=== PATIENT | female | born 1990 | race African-American/Black ===

== ENCOUNTER 2016-07-20 15:40 | Emergency (ER) | payer BC, MEDICAID ==
--- NOTE | 2016-07-20 16:20 | ER Document Report ---
ED GI/ - General Chief Complaint: Vaginal bleeding, low abdominal cramps Stated Complaint: VAGINAL BLEEDING,CRAMPING Time Seen by Provider: 07/20/16 16:18 Mode of Arrival: Ambulatory Information source: Patient Notes: Patient presents complaining of heavy vaginal bleeding for the past 2 days. Patient states that she has been occasionally passing clots. Patient complains of lower pelvic cramping. Patient has had irregular menses. TRAVEL OUTSIDE OF THE [place] IN LAST 30 DAYS: No - HPI Patient complains to provider of: Pelvic pain, Vaginal bleeding. No: Vaginal discharge Onset: Other - 2 days Timing/Duration: Persistent Quality of pain: Cramping Pain Level: 5 Location: Pelvis Vaginal bleeding (Compared to normal period): Similar, Passing clots Sexual history: Active Associated symptoms: denies: Dysuria, Fever, Nausea, Urinary hesitancy, Urinary frequency, Urinary retention, Urinary urgency, Vaginal discharge, Vomiting Exacerbated by: Denies Relieved by: Denies Similar symptoms previously: Yes Recently seen / treated by doctor: No - Related Data Allergies/Adverse Reactions: Sulfa (Sulfonamide Antibiotics) Adverse Reaction (Verified 11/30/14 22:43) Past Medical History - General Information source: Patient Last Menstrual Period: 07/20/2016 - Social History Smoking Status: Never Smoker Frequency of alcohol use: None Drug Abuse: None 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 denies: Fever, Recent illness EENT: No symptoms reported Cardiovascular: No symptoms reported. denies: Chest pain Respiratory: No symptoms reported. denies: Cough Gastrointestinal: Abdominal pain. denies: Nausea, Vomiting Genitourinary: No symptoms reported. denies: Dysuria Female Genitourinary: Vaginal bleeding. denies: Vaginal discharge Musculoskeletal: No symptoms reported. denies: Back pain Skin: No symptoms reported Hematologic/Lymphatic: No symptoms reported Neurological/Psychological: No symptoms reported Physical Exam - Vital signs Vitals: Temp Pulse Resp BP Pulse Ox 98.4 F 70 20 123/75 99 07/20/16 15:49 07/20/16 15:49 07/20/16 15:49 07/20/16 15:49 07/20/16 15:49 - General General appearance: Appears well, Alert In distress: None - HEENT Head: Normocephalic, Atraumatic Eyes: Normal Nasal: Normal Mouth/Lips: Normal Mucous membranes: Normal Neck: Normal, Supple. No: Lymphadenopathy - Respiratory Respiratory status: No respiratory distress Chest status: Nontender Breath sounds: Normal. No: Rales, Rhonchi, Stridor, Wheezing Chest palpation: Normal - Cardiovascular Rhythm: Regular Heart sounds: S1 appreciated, S2 appreciated Murmur: No - Abdominal Inspection: Normal Distension: No distension Bowel sounds: Normal Tenderness: Tender - left lower pelvic Organomegaly: No organomegaly - Genitourinary External exam: Normal Speculum exam: Cervix closed Vaginal bleeding: Mild Bimanuel exam: Adnexal tenderness - left. No: Cervical motion tender Notes: T Mejias as standby - Back Back: Normal, Nontender. No: CVA tenderness - Extremities General upper extremity: Normal inspection, Normal ROM General lower extremity: Normal inspection, Normal ROM - Neurological Neuro grossly intact: Yes Cognition: Normal Otoniel Coma Scale Eye Opening: Spontaneous Otoniel Coma Scale Verbal: Oriented [place] Coma Scale Motor: Obeys Commands Otoniel Coma Scale Total: 15 - Psychological Associated symptoms: Normal affect, Normal mood - Skin Skin Temperature: Warm Skin Moisture: Dry Skin Color: Normal Course - Vital Signs Vital signs: Temp Pulse Resp BP Pulse Ox 98.4 F 70 20 123/75 99 07/20/16 15:49 07/20/16 15:49 07/20/16 15:49 07/20/16 15:49 07/20/16 15:49 - Laboratory Result Diagrams: 07/20/16 17:00 07/20/16 17:00 Laboratory results interpreted by me: 07/20/16 07/20/16 17:00 17:00 RDW 14.3 H Urine Blood SMALL H Discharge - Discharge Clinical Impression: Dysmenorrhea, Ovarian cyst Condition: Stable Disposition: HOME, SELF-CARE Instructions: Anti-Inflammatory Medication ([facility]), Dysmenorrhea ([facility]), Ovarian Cyst ([facility]) Additional Instructions: Return immediately for any new or worsening symptoms Followup with your primary care provider, call tomorrow to make a followup appointment Follow up with a acute care physician for further evaluation of irregular vaginal bleeding Prescriptions: Naproxen [Naprosyn 250 Nmg Tablet] 1 tab PO BID PRN #14 tablet PRN Reason: Forms: Return to Work Referrals: [facility] [Provider Group] - Follow up in 3-5 days
[2016-07-20 17:25] LABS: ABSOLUTE EOSINOPHILS # (AUTO) 0.1 10^3/uL (0.0-0.6); ABSOLUTE LYMPHOCYTES (AUTO) 3.2 10^3/uL (0.5-4.7); ABSOLUTE MONOCYTES (AUTO) 0.8 10^3/uL (0.1-1.4); ABSOLUTE NEUT (AUTO) 5.1 10^3/uL (1.7-8.2); BASOPHILS % (AUTO) 0.4 % (0-2); EOSINOPHILS % (AUTO) 1.6 % (0-6); HEMATOCRIT 40.3 % (36.0-47.0); HEMOGLOBIN 13.5 g/dL (12.0-15.5); HGB HCT DIFFERENCE 0.2; LYMPHOCYTES % (AUTO) 34.8 % (13-45); MEAN CORPUSCULAR HEMOGLOBIN 28.4 pg (27.0-33.4); MEAN CORPUSCULAR HGB CONC 33.5 g/dL (32.0-36.0); MEAN CORPUSCULAR VOLUME 85 fl (80-97); MONOCYTES % (AUTO) 8.4 % (3-13); RED BLOOD COUNT 4.75 10^6/uL (3.72-5.28); RED CELL DISTRIBUTION WIDTH 14.3 % (11.5-14.0); SEGMENTED NEUTROPHILS % (AUTO) 54.8 % (42-78); WHITE BLOOD COUNT 9.2 10^3/uL (4.0-10.5)
[2016-07-20 17:39] LABS: APPEARANCE,URINE CLEAR; BILIRUBIN,URINE NEGATIVE (NEGATIVE); GLUCOSE, URINE NEGATIVE (NEGATIVE); KETONES,URINE NEGATIVE (NEGATIVE); LEUKOCYTE ESTERASE,URINE NEGATIVE (NEGATIVE); NITRITE,URINE NEGATIVE (NEGATIVE); PROTEIN,URINE NEGATIVE (NEGATIVE); URINE SPECIFIC GRAVITY 1.002; UROBILINOGEN,URINE NEGATIVE mg/dL (<2.0)
[2016-07-20 17:43] LABS: ALANINE AMINOTRANSFERASE 32 U/L (9-52); ALBUMIN 4.2 g/dL (3.5-5.0); ALKALINE PHOSPHATASE 40 U/L (38-126); ANION GAP 11 (5-19); ASPARTATE AMINO TRANSFERASE 28 U/L (14-36); BILIRUBIN,DIRECT 0.2 mg/dL (0.0-0.4); BILIRUBIN,TOTAL 0.4 mg/dL (0.2-1.3); BLOOD UREA NITROGEN 14 mg/dL (7-20); CALCIUM 9.8 mg/dL (8.4-10.2); CARBON DIOXIDE 28 mmol/L (22-30); CHLORIDE 101 mmol/L (98-107); CREATININE RESULT 0.81 mg/dL (0.52-1.25); GLUCOSE 85 mg/dL (75-110); SODIUM 139.8 mmol/L (137-145); TOTAL PROTEIN 7.8 g/dL (6.3-8.2)
--- NOTE | 2016-07-20 18:53 | RADIOLOGY REPORT (SQ) ---
EXAM DESCRIPTION: U/S NON OB PEL TV W/DOPPLER COMPLETED DATE/TIME: 07/20/2016 6:40 pm REASON FOR STUDY: pelvic pain, irreg bleeding COMPARISON: None. TECHNIQUE: Dynamic and static grayscale images acquired of the pelvis via transvaginal approach and recorded on PACS. Additional selected color Doppler and spectral images recorded. LIMITATIONS: None. FINDINGS: UTERUS: Contour normal. No mass identified. ENDOMETRIAL STRIPE: Trace upper endometrial free fluid. No focal or generalized thickening. No marlene s identified. CERVIX: No nabothian cysts. RIGHT OVARY: No abnormal masses. RIGHT OVARY DOPPLER: Normal arterial vascular flow without evidence for torsion. LEFT OVARY: Two 1.6 cm cysts. LEFT OVARY DOPPLER: Normal arterial vascular flow without evidence for torsion. FREE FLUID: None noted. OTHER: No other significant finding. MEASUREMENTS: UTERUS: 9.1 x 6.0 x 4.2 cm ENDOMETRIAL STRIPE: 3 mm RIGHT OVARY: 3.3 x 3.1 x 1.5 cm LEFT OVARY: 3.8 x 3.1 x 2.1 cm IMPRESSION: Trace upper endometrial free fluid. Two 1.6 cm left ovarian cysts. TECHNICAL DOCUMENTATION: JOB ID: [id number] [facility]- All Rights Reserved
[2016-07-20 19:32] LABS: CHLAM PCR NOT DETECTED (NOT DETECT)
[2016-07-20 20:35] VITALS: BP 126/67
== END 2016-07-20 20:35 | disposition home or self-care (01) ==
LOC: ER 15:40
DX: N83.209 Unspecified ovarian cyst, unspecified side (principal); N94.6 Dysmenorrhea, unspecified; R10.30 Lower abdominal pain, unspecified; R10.2 Pelvic and perineal pain; Z88.2 Allergy status to sulfonamides
CPT/HCPCS: 36415; 76830; 80053; 81001; 84702; 85025; 87210; 87491; 87591; 93976; 99284

== ENCOUNTER 2020-03-02 16:42 | Outpatient (CLI) | payer OTHER ==
[2020-03-02 17:08] LABS: APPEARANCE,URINE CLEAR; BILIRUBIN,URINE NEGATIVE (NEGATIVE); COLOR,URINE STRAW; GLUCOSE, URINE NEGATIVE (NEGATIVE); KETONES,URINE NEGATIVE (NEGATIVE); LEUKOCYTE ESTERASE,URINE NEGATIVE (NEGATIVE); NITRITE,URINE NEGATIVE (NEGATIVE); PROTEIN,URINE NEGATIVE (NEGATIVE); URINE SPECIFIC GRAVITY 1.004; UROBILINOGEN,URINE NEGATIVE mg/dL (<2.0)
[2020-03-02 17:23] LABS: URINE AMPHETAMINES SCREEN NEGATIVE; URINE BARBITURATES SCREEN NEGATIVE; URINE BENZODIAZEPINES SCREEN NEGATIVE; URINE COCAINE SCREEN NEGATIVE; URINE MARIJUANA (THC) SCREEN NEGATIVE; URINE METHADONE SCREEN NEGATIVE; URINE PHENCYCLIDINE SCREEN NEGATIVE
[2020-03-02] MEDS ORDERED: HYDROXYZINE PAMOATE 50 MG CAPSULE PO ONE (18:29)
[2020-03-02] MEDS ORDERED: HYDROXYZINE PAMOATE 50 MG CAPSULE ONE (18:36)
[2020-03-02] MEDS ORDERED: ONDANSETRON HCL 8 MG TABLET PO ONE (18:38)
[2020-03-02] MEDS ORDERED: ONDANSETRON HCL 8 MG TABLET ONE (18:38)
--- NOTE | 2020-03-02 18:50 | Non Stress Test Report ---
Non Stress Test Datetime Report Generated by CPN: 03/02/2020 18:50 DEMOGRAPHIC EGA NST: 39.0 INDICATION Indication for Study (NST) Other: rule out labor MONITORING Monitor Explained: Monitor Explained; Test Explained; Patient Verbalized Understanding Time on Monitor: 03/02/2020 17:01 Time off Monitor: 03/02/2020 17:21 NST Duration: 20 NST INTERVENTIONS NST Interventions: PO Hydration; Reposition Patient Physician Notified NST: Dr. Pelaez on unit, reviewed fht BABY A: [id number] BABY A Movement : Present Contraction Frequency : none FHR Baseline : 135 Accelerations : 15X15 Decelerations : None Variability : Moderate 6-25bpm NST Review: Meets Criteria for Reactive NST NST Review and Verified By : Wild Avila RN NST Results: Reactive NST REPORT Report Trigger: Send Report
== END 2020-03-02 18:58 | disposition home or self-care (01) ==
LOC: LC 16:42
PROVIDERS: ATTEND Obstetrics & Gynecology
DX: O47.1 False labor at or after 37 completed weeks of gestation (principal); Z3A.39 39 weeks gestation of pregnancy; Z88.1 Allergy status to other antibiotic agents
CPT/HCPCS: 80307; 81005; S0119

== ENCOUNTER 2020-03-02 21:18 | Inpatient (IN) | payer OTHER ==
[~2020-03-02 21:18] MED LIST: RINGERS SOLUTION,LACTATED 1,000 ML IV PRN
[2020-03-02] MEDS ORDERED: MISOPROSTOL 0.2 MG TABLET ONE (21:24)
[2020-03-02] MEDS ORDERED: LIDOCAINE 1% INJ-PF (10 MG/ML) 30 ML SDV ONE (21:24)
[2020-03-02] MEDS ORDERED: OXYTOCIN 10 UNIT/ML VIAL ONE (21:24)
[2020-03-02] MEDS ORDERED: OXYTOCIN/0.9 % SODIUM CHLORIDE 30 UNIT/500 ML RTUINJ ONE (21:24)
[2020-03-02] MEDS ORDERED: BENZOCAINE/MENTHOL AEROSOL SPRAY 56 ML TOP PRN (21:49)
[2020-03-02] MEDS ORDERED: DIPHENHYDRAMINE HCL 25 MG CAPSULE PO PRN (21:49)
[2020-03-02] MEDS ORDERED: ZOLPIDEM TARTRATE 5 MG TABLET PO PRN (21:49)
[2020-03-02] MEDS ORDERED: MEASLES,MUMPS&RUBELLA VACC/PF 0.5 ML VIAL SUBCUT PRN (21:49)
[2020-03-02] MEDS ORDERED: VARICELLA VACC/PF (1350 UNIT/0.5 ML) 0.5 ML VIAL SUBCUT PRN (21:49)
[2020-03-02] MEDS ORDERED: FAMOTIDINE 20 MG TABLET PO PRN (21:49)
[2020-03-02] MEDS ORDERED: OXYTOCIN/0.9 % SODIUM CHLORIDE 30 UNIT/500 ML RTUINJ IV PRN (21:49)
[2020-03-02] MEDS ORDERED: PSEUDOEPHEDRINE HCL 30 MG TABLET PO PRN (21:49)
[2020-03-02] MEDS ORDERED: DIBUCAINE 1% OINTMENT 28 GM TP PRN (21:49)
[2020-03-02] MEDS ORDERED: ACETAMINOPHEN 650 MG SUPP.RECT PR PRN (21:49)
[2020-03-02] MEDS ORDERED: GLYCERIN/WITCH HAZEL LEAF 1 EACH MED..WIPE TP PRN (21:49)
[2020-03-02] MEDS ORDERED: ACETAMINOPHEN WITH CODEINE #3 TABLET PO PRN ×2 (21:49)
[2020-03-02] MEDS ORDERED: MAG HYDROX/AL HYDROX/SIMETH SUSP 30 ML UDCUP PO PRN (21:49)
[2020-03-02] MEDS ORDERED: MAGNESIUM HYDROXIDE SUSP 30 ML UDCUP PO PRN (21:49)
[2020-03-02] MEDS ORDERED: DIPH/PERTUSS(ACELL)/TETANUS VAC/PF 0.5 ML SYR (>=10YO) IM PRN (21:49)
--- NOTE | 2020-03-02 21:56 | Admission Physical ---
Datetime Report Generated by CPN: 03/02/2020 21:56 CURRENT ADMISSION Chief Complaint: Uterine Contractions Indication for Induction: Not Applicable Admit Impression : Term, Intrauterine Admit Plan: Admit to Unit; Initiate Labor Protocol ALLERGIES Medication Allergies: Unknown Medication Allergies: Sulfa (Sulfonamide Antibiotics) (11/30/2014) Latex: No Latex Allergies OBSTETRICAL HISTORY EDC: 03/09/2020 00:00 : 2 Para: 1 Term: 0 : 1 SAB: 0 IAB: 0 Ectopic: 0 Livin Cesareans: 0 VBACs: 0 Multiple Births: 1 Gestational Diabetes: No Rh Sensitization: No Incompetent Cervix: No CONSUELO: No Infertility: No ART Treatment: No Uterine Anomaly: No IUGR: No Hx Previous C/S: No Macrosomia: No Hx Loss/Stillborn: No PIH: No Hx : No Placenta Previa/Abruption: No Depression/PP Depression: No PTL/PROM: No Post Hemorrhage: No Obstetrical History Comments: G1: 2014, 36.1 vaginal twins male/male [facility] G2: current SEE RECORDS Alcohol: No Marijuana : No Cocaine: No Other Illicit Drugs: No Cigarettes: Never Smoker. 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 Heart Disease: No Hosp/Surgery: No Autoimmune Disorder: No Anesthetic Complications: No Kidney Disease: No Abnormal Pap Smear: No Neuro/Epilepsy: No Psychiatric Disorders: No Other Medical Diseases: No Hepatitis/Liver Disease: No Significant Family History: No Varicosities/Phlebitis: No Trauma/Violence : No Thyroid Dysfunction: No Medical History Comments: meniscus repair 2018, tonsillectomy 2019, Covid 12/19/19-01/01/20, sports induced asthma, shingles @ 24 weeks gestation, Gastrointestinal disease INFECTIOUS HISTORY Gonorrhea: No Genital Herpes: No Chlamydia: No Tuberculosis: No Syphilis: No Hepatitis: No HIV/AIDS Exposure: No Rash or Viral Illness: No HPV: No PHYSICAL EXAM General: Normal HEENT: Normal Neurologic: Normal Thyroid: Normal Heart: Normal Lungs: Normal Breast: Deferred Back: Normal Abdomen: Normal Genitourinary Exam: Normal Extremities: Normal DTRs: Normal Pelvic Type: Adequate Vital Signs: Reviewed VAGINAL EXAM Dilatation: 10 Effacement: 100 Station: 0 MEMBRANES Pooling: Negative Membranes: Ruptured FETUS A EGA: 39.0 Monitoring: External US FHR- Baseline: 120 Variability: Moderate 6-25bpm Decelerations: None FHR Category: Category I Presentation: Vertex Admit Comment: Anticipated delivery PLANS FOR LABOR AND DELIVERY Pain Management: Natural Feeding Preference: Breast Benefit of Breast Feed Discussed: Yes INFORMED CONSENT Signature: with User ID: [email or web address]
[2020-03-02] MEDS ORDERED: IBUPROFEN 800 MG TABLET ONE (22:40)
[2020-03-02] MEDS: IBUPROFEN 800 MG TABLET PO SCH (22:40)
[2020-03-02 22:55] LABS: ABSOLUTE LYMPHOCYTES (AUTO) 1.2 10^3/uL (0.5-4.7); BASOPHILS % (AUTO) 0.3 % (0-2); HEMATOCRIT 35.9 % (36.0-47.0); HEMOGLOBIN 12.2 g/dL (12.0-15.5); LYMPHOCYTES % (AUTO) 6.9 % (13-45); MEAN CORPUSCULAR HEMOGLOBIN 29.5 pg (27.0-33.4); MEAN CORPUSCULAR HGB CONC 33.9 g/dL (32.0-36.0); MEAN CORPUSCULAR VOLUME 87 fl (80-97); MONOCYTES % (AUTO) 5.7 % (3-13); PLATELET COUNT 195 10^3/uL (150-450); RED BLOOD COUNT 4.12 10^6/uL (3.72-5.28); RED CELL DISTRIBUTION WIDTH 13.9 % (11.5-14.0); SEGMENTED NEUTROPHILS % (AUTO) 87.1 % (42-78); TOTAL CELLS COUNTED % (AUTO) 100 %; WHITE BLOOD COUNT 17.2 10^3/uL (4.0-10.5)
--- NOTE | 2020-03-02 23:36 | Delivery Summary ---
Del Sum A-C Datetime Report Generated by CPN: 03/02/2020 23:35 DELIVERY PERSONNEL DELIVERY PERSONNEL: [id number] Delivery Doctor:: Eduin Pelaez MD Labor and Delivery Nurse:: Gabby Alvarez RNcoal carrier Nurse:: DOROTEO Amor Manager Plan/CUSTOMER ENGAGEMENT ANALYST: Ina Green, ST MATERNAL INFORMATION Delivery Anesthesia: None Medications After Delivery: Pitocin 10 Units IM; Cytotec 1000mcg Per Rectum/Vagina Estimated Blood Loss (ml): 250 Maternal Complications: Precipitous Labor (<3hrs) LABOR SUMMARY EDC: 03/09/2020 00:00 No. Babies in Womb: 1 Attempted: No Labor Anesthesia: None LABOR INFORMATION Reason for Induction: Not Applicable Complete Dilatation: 03/02/2020 21:19 Oxytocin: N/A Group B Beta Strep: negative Steroids Given: None Reason Steroids Not Administered: Not Applicable MEMBRANES Membranes Rupture Method: Spontaneous Rupture of Membranes: 03/02/2020 21:36 Length of Rupture (hr): 0.08 Amniotic Fluid Color: Clear Amniotic Fluid Amount: Small Amniotic Fluid Odor: Normal STAGES OF LABOR Stage 2 hr: 0 Stage 2 min: 22 Stage 3 hr: 0 Stage 3 min: 3 VAGINAL DELIVERY Episiotomy: None Laceration #1: None Laceration Extension #1: N/A Laceration Repair: Not Applicable Sponge Count Correct: Vaginal Sweep Performed Sharps Count Correct: Yes CSECTION DELIVERY Primary Indication: N/A Secondary Indication: N/A CSection Incidence: N/A Labor: N/A Elective: N/A CSection Incision: N/A BABY A INFORMATION Delivery Date/Time: 03/02/2020 21:41 Method of Delivery: Vaginal Nurse Controlled Delivery: No Born in Route : No : N/A Forceps: N/A Vacuum Extraction: N/A Shoulder Dystocia : No PRESENTATION/POSITION BABY A Presentation: Cephalic Cephalic Presentation: Vertex Vertex Position: Left Occipital Anterior Breech Presentation: N/A PLACENTA INFORMATION BABY A Placenta Delivery Time : 03/02/2020 21:44 Placenta Method of Delivery: Spontaneous Placenta Status: Delivered SCORES BABY A Heart Rate 1 min: >100 bpm Resp Effort 1 min: Good Cry Reflex Irritability 1 min: Cough or Sneeze or Pulls Away Muscle Tone 1 min: Active Motion Color 1 min: Body Breese, Extremities Blue Resuscitation Effort 1 min: Tactile Stimulation SCORE 1 MIN: 9 Heart Rate 5 min: >100 bpm Resp Effort 5 min: Good Cry Reflex Irritability 5 min: Cough or Sneeze or Pulls Away Muscle Tone 5 min: Active Motion Color 5 min: Body Breese, Extremities Blue SCORE 5 MIN: 9 INFORMATION BABY A Gestational Age at Delivery: 39.0 Gestational Status: Full Term- 39- 40.6 Weeks Outcome : Liveborn Infant Condition : Stable Infant Sex: Female IDENTIFICATION BABY A Infant Verification Date/Time: 03/02/2020 21:54 ID Band Number: [id number] Mother's Name Verified: Yes RN Verifying Infant: RN Sam Additional Verifying Personnel: MOCCASIN SEWER Parlor WEIGHT/LENGTH BABY A Infant Birthweight (gm): 3165 Weight (lb): 7 Weight (oz): 0 Infant Length (in): 20.50 Infant Length (cm): 52.07 CORD INFORMATION BABY A No. Cord Vessels: 3 Nuchal Cord : Around Neck x1, Loose Cord Blood Taken: Yes-For Storage (Mom's Blood type +) Suction: None ASSESSMENT BABY A Complications: None Physical Findings at Delivery: Within Normal Limits Infant Respirations: Appears Normal Skin to Skin: Yes Forest Fire Officer/ALS Called : No Care By: RN [place] Transferred To: Remains with Mother BABY B INFORMATION : N/A SIGNATURES Signature: with User ID: [email or web address]
--- NOTE | 2020-03-02 23:36 | Birth Certificate Data ---
Cert Data Datetime Report Generated by CPN: 03/02/2020 23:35 CERTIFICATE DATA Delivery Provider: Eduin Pelaez MD (03/02/2020 16:45:Eduin Pelaez MD ([facility])) 47a. Care: Yes (03/02/2020 16:45:Sharita Almodovar RN) 47b. Date of First Visit: 08/31/2019 00:00 (03/02/2020 16:45:Sharita Almodovar RN) 48a. Number of Prev Live Births: 2 (03/02/2020 16:45:Sharita Almodovar RN) 48b. Now Livin (03/02/2020 16:45:Sharita Almodovar RN) 48c. Live Births Now : 0 (03/02/2020 16:45:QS system process) 48d. Date of Last Live : 09/14/2014 00:00 (03/02/2020 16:45:Sharita Almodovar RN) 48e. Losses: 0 (03/02/2020 16:45:Sharita Almodovar RN) RISK FACTORS IN THIS 49a. Diabetes: No (03/02/2020 16:45:Sharita Almodovar RN) 49b. Hypertension: No (03/02/2020 16:45:Sharita Almodovar RN) 49c. Previous Births: 1 (03/02/2020 16:45:Edel Moraes RN) 49d. Stillborns: No (03/02/2020 16:45:Sharita Almodovar RN) 49d. IUGR: No (03/02/2020 16:45:Sharita Almodovar RN) 49e. Infertility Treatment: No (03/02/2020 16:45:Sharita Almodovar RN) 49f. Previous Cesareans: 0 (03/02/2020 16:45:Sharita Almodovar RN) Mother's Height 50b. Height Inches: 68 (03/02/2020 22:18:QS system process) Mother's Weight 51a. Pre- Weight (lbs): 205 (03/02/2020 16:45:Edel Moraes RN) 51b. Weight at Delivery (lbs): 240 (03/02/2020 16:58:QS system process) Infections Present/Treated 53a. Gonorrhea: No (03/02/2020 16:45:Sharita Almodovar RN) Results this Hospital Visit : Negative (03/02/2020 16:45:Sharita Almodovar RN) 53b. Syphilis: No (03/02/2020 16:45:Sharita Almodovar RN) 53c. Chlamydia: No (03/02/2020 16:45:Sharita Almodovar RN) Results this Hospital Visit: Negative (03/02/2020 16:45:Sharita Almodovar RN) 53d. Hepatitis B: No (03/02/2020 16:45:Sharita Almodovar RN) Results this Hospital Visit: Negative (03/02/2020 16:45:Sharita Almodovar RN) 53h. Mother Tested for HBsAG: Yes (03/02/2020 16:45:Sharita Almodovar RN) 53i. Date Tested: 08/31/2019 00:00 (03/02/2020 16:45:Sharita Almodovar RN) 53j. Test Result: Negative (03/02/2020 16:45:Sharita Almodovar RN) Cigarette Smoking Cigarette Smoking: Never Smoker. [id number] (03/02/2020 16:45:Sharita Almodovar, RN) Onset of Labor 56a. PROM >12 Hrs: 0.08 (03/02/2020 16:45:QS system process) 57a. Induction of Labor: N/A (03/02/2020 16:45:Izabela Vargas RN) 57c. Non-Vertex Presentation A: Vertex (03/02/2020 16:45:Eudin Pelaez MD ([facility])) 57d. Steroids - Lung Mat: None (03/02/2020 16:45:Eduin Pelaez MD ([facility])) 57d. Steroids - Lung Mat: Not Applicable (03/02/2020 16:45:Eduin Pelaez MD ([facility])) 57g. Moderate/Heavy Meconium: Clear (03/02/2020 21:36:Gabby Alvarez RN) 57h. Intolerance of Labor: N/A (03/02/2020 16:45:Izabela Vargas RN) : N/A (03/02/2020 16:45:Izabela Vargas RN) 57i. Epidural/Spinal Anesthesia: None (03/02/2020 16:45:Izabela Vargas RN) Method of Delivery 58a. Forceps - Unsuccessful A: N/A (03/02/2020 16:45:Izabela Vargas RN) 58b. Vacuum - Unsuccessful A: N/A (03/02/2020 16:45:Izabela Vargas RN) 58c. Presentation at 58c. Presentation at - A : Vertex (03/02/2020 16:45:Eduin Pelaez MD ([facility])) 58c. Presentation at - A : N/A (03/02/2020 16:45:Eduin Pelaez MD ([facility])) 58c. Presentation at - A : Cephalic (03/02/2020 16:45:Eduin Pelaez MD ([facility])) Final Route and Method of Del 58d. Baby A Route/Delivery: Vaginal (03/02/2020 21:41:Gbaby Alvarez RN) 58e. Trial of Labor Attempted: No (03/02/2020 16:45:Izabela Vargas RN) 58e. Trial of Labor Attempted A: N/A (03/02/2020 16:45:Izabela Vargas RN) 58e. Trial of Labor Attempted B: N/A (03/02/2020 16:45:Izabela Vargas RN) Maternal Morbidity 59b. 3rd or 4th Degree Lacs: None (03/02/2020 16:45:Eduin Pelaez MD ([facility])) Birthweight Baby A: 3165 (03/02/2020 16:45:Gabby Alvarez RN) 60a. Pounds : 7 (03/02/2020 16:45:QS system process) 60b. Ounces: 0 (03/02/2020 16:45:QS system process) 61. GA at Delivery Baby A: 39.0 (03/02/2020 16:45:Izabela Vargas RN) : Full Term- 39- 40.6 Weeks (03/02/2020 16:45:QS system process) 62a. 5 Minute Baby A: 9 (03/02/2020 16:45:QS system process)
[2020-03-02 23:59] LABS: ALBUMIN 3.4 g/dL (3.5-5.0); ALKALINE PHOSPHATASE 157 U/L (38-126); ANION GAP 11 (5-19); ASPARTATE AMINO TRANSFERASE 29 U/L (14-36); BILIRUBIN,DIRECT 0.2 mg/dL (0.0-0.4); BILIRUBIN,TOTAL 0.6 mg/dL (0.2-1.3); BLOOD UREA NITROGEN 4 mg/dL (7-20); CALCIUM 9.3 mg/dL (8.4-10.2); CARBON DIOXIDE 20 mmol/L (22-30); CHLORIDE 103 mmol/L (98-107); GLUCOSE 124 mg/dL (75-110); POTASSIUM 3.3 mmol/L (3.6-5.0); TOTAL PROTEIN 6.8 g/dL (6.3-8.2); URIC ACID 3.4 mg/dL (2.5-6.2)
[2020-03-03] MEDS: ACETAMINOPHEN 325 MG TABLET PO PRN ×2 (03:11→20:22)
[2020-03-03] MEDS: IBUPROFEN 800 MG TABLET PO SCH ×3 (05:59→22:33)
[2020-03-03 07:35] LABS: HEMATOCRIT 33.5 % (36.0-47.0); HEMOGLOBIN 11.7 g/dL (12.0-15.5); MEAN CORPUSCULAR HEMOGLOBIN 30.2 pg (27.0-33.4); MEAN CORPUSCULAR HGB CONC 34.8 g/dL (32.0-36.0); MEAN CORPUSCULAR VOLUME 87 fl (80-97); PLATELET COUNT 179 10^3/uL (150-450); RED BLOOD COUNT 3.85 10^6/uL (3.72-5.28); RED CELL DISTRIBUTION WIDTH 14.1 % (11.5-14.0); WHITE BLOOD COUNT 17.5 10^3/uL (4.0-10.5)
[2020-03-03] MEDS: DOCUSATE SODIUM 100 MG CAPSULE PO SCH ×2 (10:19→17:34)
[2020-03-03] MEDS: PRENATAL VITAMIN W DHA CAPSULE PO SCH (10:19)
[2020-03-03] MEDS: FERROUS SULFATE 325 MG TABLET PO SCH ×2 (10:19→17:34)
[2020-03-03] MEDS: SENNOSIDES/DOCUSATE 8.6-50 MG 1 EACH TABLET PO SCH (10:20)
--- NOTE | 2020-03-03 10:26 | PDOC PROGRESS REPORT ---
Subjective Date:: 03/03/20 Subjective:: She is doing well today. Reason For Visit: Physical Exam - Physical Exam Vital Signs: Temp Pulse Resp BP Pulse Ox 97.7 F 50 L 17 120/65 98 03/03/20 07:46 03/03/20 07:46 03/03/20 07:46 03/03/20 07:46 03/03/20 07:46 Intake & Output 03/02/20 03/03/20 03/04/20 06:59 06:59 06:59 Intake Total 400 Output Total 500 Balance -500 400 Weight 109 kg General appearance: PRESENT: no acute distress, well-developed, well-nourished Extremities exam: PRESENT: full ROM. ABSENT: calf tenderness, clubbing, pedal edema Neurological exam: PRESENT: alert, awake, oriented to person, oriented to place, oriented to time, oriented to situation, CN II-XII grossly intact. ABSENT: motor sensory deficit Result Laboratory Results: 03/03/20 07:02 03/02/20 22:37 03/02/20 03/02/20 03/02/20 22:37 22:37 22:37 WBC 17.2 H RBC 4.12 Hgb 12.2 Hct 35.9 L MCV 87 MCH 29.5 MCHC 33.9 RDW 13.9 Plt Count 195 Seg Neutrophils % 87.1 H Sodium 134.2 L Potassium 3.3 L Chloride 103 Carbon Dioxide 20 L Anion Gap 11 BUN 4 L Creatinine 0.71 Est GFR ( Amer) > 60 Glucose 124 H Uric Acid 3.4 Calcium 9.3 Total Bilirubin 0.6 AST 29 Alkaline Phosphatase 157 H Total Protein 6.8 Albumin 3.4 L Blood Type A POSITIVE Antibody Screen NEGATIVE 03/03/20 07:02 WBC 17.5 H RBC 3.85 Hgb 11.7 L Hct 33.5 L MCV 87 MCH 30.2 MCHC 34.8 RDW 14.1 H Plt Count 179 Seg Neutrophils % Sodium Potassium Chloride Carbon Dioxide Anion Gap BUN Creatinine Est GFR ( Amer) Glucose Uric Acid Calcium Total Bilirubin AST Alkaline Phosphatase Total Protein Albumin Blood Type Antibody Screen Impressions: PPD#1 doing well Assessment & Plan - Diagnosis (1) Vaginal delivery Is this a current diagnosis for this admission?: Yes - Time Time Spent with patient: 15-24 minutes Anticipated discharge: Home Anticipated DC Timeframe: within 24 hours
[2020-03-04] MEDS: IBUPROFEN 800 MG TABLET PO SCH (06:17)
[2020-03-04 07:41] VITALS: BP 129/74
--- NOTE | 2020-03-04 08:59 | PDOC DISCHARGE SUMMARY ---
Impression - Admit/DC Date/PCP Admission Date/Primary Care Provider: 03/02/20 21:29 YOSVANY TANNER MD Discharge Date: 03/04/20 - Discharge Diagnosis (1) Labor, precipitous, delivered Is this a current diagnosis for this admission?: Yes (2) Normal course Is this a current diagnosis for this admission?: Yes (3) Vaginal delivery Is this a current diagnosis for this admission?: Yes - Additional Information Resuscitation Status: Full Code Discharge Diet: Regular Discharge Activity: Balance Activity w/Rest, Pelvic Rest Referrals: YOSVANY TANNER MD [Primary Care Provider] - Prescriptions: Ibuprofen [Motrin 800 mg Tablet] 800 mg PO Q8HP PRN #60 tablet PRN Reason: Home Medications: Pnv No.95/Ferrous Fum/Folic AC [ Multivitamin Tablet] 1 tab PO DAILY 03/02/20 Ibuprofen [Motrin 800 mg Tablet] 800 mg PO Q8HP PRN #60 tablet 03/04/20 HPI Gestational Age: 39.0 Reason(s) for Admission: Onset of Labor Procedures: NST Intrapartum Procedure(s): Spontaneous Vaginal Delivery Hospital Course 59. Maternal Morbidity (serious complications experinced by the mother associated with labor and delivery: None of the above Results Laboratory Results: WBC 17.5 10^3/uL (4.0-10.5) H 03/03/20 07:02 RBC 3.85 10^6/uL (3.72-5.28) 03/03/20 07:02 Hgb 11.7 g/dL (12.0-15.5) L 03/03/20 07:02 Hct 33.5 % (36.0-47.0) L 03/03/20 07:02 MCV 87 fl (80-97) 03/03/20 07:02 MCH 30.2 pg (27.0-33.4) 03/03/20 07:02 MCHC 34.8 g/dL (32.0-36.0) 03/03/20 07:02 RDW 14.1 % (11.5-14.0) H 03/03/20 07:02 Plt Count 179 10^3/uL (150-450) 03/03/20 07:02 Lymph % (Auto) 6.9 % (13-45) L 03/02/20 22:37 [place] % (Auto) 5.7 % (3-13) 03/02/20 22:37 Eos % (Auto) 0.0 % (0-6) 03/02/20 22:37 Baso % (Auto) 0.3 % (0-2) 03/02/20 22:37 Absolute Neuts (auto) 15.0 10^3/uL (1.7-8.2) H 03/02/20 22:37 Absolute Lymphs (auto) 1.2 10^3/uL (0.5-4.7) 03/02/20 22:37 Absolute Monos (auto) 1.0 10^3/uL (0.1-1.4) 03/02/20 22:37 Absolute Eos (auto) 0.0 10^3/uL (0.0-0.6) 03/02/20 22:37 Absolute Basos (auto) 0.0 10^3/uL (0.0-0.2) 03/02/20 22:37 Seg Neutrophils % 87.1 % (42-78) H 03/02/20 22:37 Sodium 134.2 mmol/L (137-145) L 03/02/20 22:37 Potassium 3.3 mmol/L (3.6-5.0) L 03/02/20 22:37 Chloride 103 mmol/L (98-107) 03/02/20 22:37 Carbon Dioxide 20 mmol/L (22-30) L 03/02/20 22:37 Anion Gap 11 (5-19) 03/02/20 22:37 BUN 4 mg/dL (7-20) L 03/02/20 22:37 Creatinine 0.71 mg/dL (0.52-1.25) 03/02/20 22:37 Est GFR ( Amer) > 60 (>60) 03/02/20 22:37 Est GFR (MDRD) Non-Af > 60 (>60) 03/02/20 22:37 Glucose 124 mg/dL (75-110) H 03/02/20 22:37 Uric Acid 3.4 mg/dL (2.5-6.2) 03/02/20 22:37 Calcium 9.3 mg/dL (8.4-10.2) 03/02/20 22:37 Total Bilirubin 0.6 mg/dL (0.2-1.3) 03/02/20 22:37 Direct Bilirubin 0.2 mg/dL (0.0-0.4) 03/02/20 22:37 Neonat Total Bilirubin Not Reportable 03/02/20 22:37 Neonat Direct Bilirubin Not Reportable 03/02/20 22:37 Neonat Indirect Bili Not Reportable 03/02/20 22:37 AST 29 U/L (14-36) 03/02/20 22:37 ALT 12 U/L (<35) 03/02/20 22:37 Alkaline Phosphatase 157 U/L (38-126) H 03/02/20 22:37 Lactate Dehydrogenase 212 U/L (120-246) 03/02/20 22:37 Total Protein 6.8 g/dL (6.3-8.2) 03/02/20 22:37 Albumin 3.4 g/dL (3.5-5.0) L 03/02/20 22:37 Blood Type A POSITIVE 03/02/20 22:37 Antibody Screen NEGATIVE 03/02/20 22:37 Plan Plan of Treatment: f/u at [facility] 4 wks Time Spent: Less than 30 Minutes
[2020-03-04] MEDS: PRENATAL VITAMIN W DHA CAPSULE PO SCH (09:22)
[2020-03-04] MEDS: DOCUSATE SODIUM 100 MG CAPSULE PO SCH (09:22)
[2020-03-04] MEDS: FERROUS SULFATE 325 MG TABLET PO SCH (09:22)
[2020-03-04] MEDS: SENNOSIDES/DOCUSATE 8.6-50 MG 1 EACH TABLET PO SCH (09:22)
== END 2020-03-04 12:53 | disposition home or self-care (01) | DRG 807 ==
LOC: LC 21:18 → LR 21:29 → 2S 23:56
PROVIDERS: ADMIT Obstetrics & Gynecology; ATTEND Obstetrics & Gynecology
PROC: 10E0XZZ Delivery of Products of Conception, External Approach (ICD-10-PCS; principal; 2020-03-02)
DX: O69.81X0 Labor and delivery complicated by cord around neck, without compression, not applicable or unspecified (principal); Z37.0 Single live birth; O62.3 Precipitate labor; Z20.822 Contact with and (suspected) exposure to COVID-19; Z88.2 Allergy status to sulfonamides; Z3A.39 39 weeks gestation of pregnancy
CPT/HCPCS: 36415; 80053; 83615; 84550; 85025; 85027; 86592; 86850; 86900; 86901; J2590; J3490

== ENCOUNTER 2020-03-06 04:11 | Emergency (ER) | payer OTHER ==
[2020-03-06 04:58] VITALS: BP 197/88
[2020-03-06 06:12] LABS: APPEARANCE,URINE CLEAR; BILIRUBIN,URINE NEGATIVE (NEGATIVE); COLOR,URINE STRAW; GLUCOSE, URINE NEGATIVE (NEGATIVE); KETONES,URINE NEGATIVE (NEGATIVE); LEUKOCYTE ESTERASE,URINE NEGATIVE (NEGATIVE); NITRITE,URINE NEGATIVE (NEGATIVE); PROTEIN,URINE NEGATIVE (NEGATIVE); URINE SPECIFIC GRAVITY 1.004; UROBILINOGEN,URINE NEGATIVE mg/dL (<2.0)
--- NOTE | 2020-03-06 23:42 | EKG REPORT ---
SEVERITY:- NORMAL ECG - SINUS RHYTHM : Confirmed by: Manuel Heredia 06-Mar-2020 23:41:06
== END 2020-03-06 08:00 | disposition left against medical advice (07) ==
LOC: ER 04:11
DX: Z53.21 Procedure and treatment not carried out due to patient leaving prior to being seen by health care provider (principal)
CPT/HCPCS: 81001; 93005; 93010